=== PATIENT | male | born 1945 | race Native Hawaiian/Other Pacific Islander ===

== ENCOUNTER 2017-02-26 12:44 | Emergency (ER) | payer OTHER ==
[~2017-02-26] VITALS: Ht 185.4 cm; Wt 103.4 kg
[2017-02-26 13:31] LABS: PLATELET COUNT 242 K/uL (142-355)
[2017-02-26 14:01] LABS: SODIUM 118 mmol/L (136-145)
[2017-02-26 16:02] VITALS: BP 157/78; TEMP 98.2
== END 2017-02-26 16:02 | disposition short-term general hospital (02) ==
LOC: ED 12:44
DX: I50.9 Heart failure, unspecified (principal); E87.1 Hypo-osmolality and hyponatremia; N04.9 Nephrotic syndrome with unspecified morphologic changes; E11.9 Type 2 diabetes mellitus without complications; R68.89 Other general symptoms and signs
CPT/HCPCS: 36415; 80053; 81000; 82550; 83036; 83880; 84484; 85027; 85610; 85730; 93005; 96360; 96374; 99284; J1940

== ENCOUNTER 2017-02-26 16:28 | Outpatient (CLI) | payer OTHER | END 2017-02-26 18:13 | disposition short-term general hospital (02) | LOC: AMB 16:28 | DX: I50.9 Heart failure, unspecified (principal); E87.1 Hypo-osmolality and hyponatremia; N04.9 Nephrotic syndrome with unspecified morphologic changes; E11.9 Type 2 diabetes mellitus without complications; R68.89 Other general symptoms and signs | CPT/HCPCS: A0425; A0427 ==